=== PATIENT | female | born 1945 | race Caucasian/White ===

== ENCOUNTER 2018-05-12 18:57 | Emergency (ER) | payer MEDICARE, OTHER ==
--- NOTE | 2018-05-12 20:18 | ED ---
Lower Extremity - HPI Summary HPI Summary: Patient with history of right hip placed replacement in 2006 complains of feeling something moving in her right hip while leaning over to tie her shoe in a seated position today. No pain at rest. Pain only with movement of right leg. Denies trauma, fall, . Medical history is HTN. No anti-coag. Any other symptoms or injury. - History of Current Complaint Chief Complaint: EDHipPelvisInjury Stated Complaint: RT HIP PAIN Time Seen by Provider: 05/12/18 19:30 Hx Obtained From: Patient Mechanism Of Injury: Other Severity Currently: None Pain Intensity: 0 Pain Scale Used: 0-10 Numeric Associated Signs And Symptoms: Positive: Negative Aggravating Factor(s): Movement Alleviating Factor(s): Rest - Allergies/Home Medications Allergies/Adverse Reactions: Allergies Allergy/AdvReac Type Severity Reaction Status Date / Time MS Benzoin [Benzoin] Allergy Severe Hives Verified 05/12/18 19:21 Opioids - Morphine Analogues Allergy Unknown Verified 05/12/18 19:21 Reaction Details PMH/Surg Hx/FS Hx/Imm Hx Endocrine/Hematology History: Denies: Hx Diabetes, Hx Thyroid Disease Cardiovascular History: Reports: Hx Hypertension - on meds Respiratory History: Denies: Hx Asthma, Hx Chronic Obstructive Pulmonary Disease (COPD) GI History: Denies: Hx Ulcer Musculoskeletal History: Denies: Hx Osteoporosis - Cancer History Hx Chemotherapy: No Hx Radiation Therapy: No - Surgical History Surgery Procedure, Year, and Place: RIGHT HIP REPLACEMENT, knee with a screw Infectious Disease History: No Infectious Disease History: Denies: Hx Hepatitis, Hx Human Immunodeficiency Virus (HIV), Traveled Outside the [place] in Last 30 Days - Social History Alcohol Use: Occasionally Substance Use Type: Reports: None Smoking Status (MU): Never Smoked Tobacco Review of Systems Constitutional: Negative Eyes: Negative ENT: Negative Cardiovascular: Negative Respiratory: Negative Gastrointestinal: Negative Genitourinary: Negative Positive: Arthralgia Skin: Negative Neurological: Negative Psychological: Normal All Other Systems Reviewed And Are Negative: Yes Physical Exam - Summary Physical Exam Summary: Tenderness to palpation over right hip. No rotation of right leg noted. Patient will not start straighten out leg, so cannot determine difference in leg length. PMS intact distally on right lower extremity. Triage Information Reviewed: Yes Vital Signs On Initial Exam: Initial Vitals Temp Pulse Resp BP Pulse Ox 97.7 F 82 16 144/72 97 05/12/18 19:19 05/12/18 19:19 05/12/18 19:19 05/12/18 19:19 05/12/18 19:19 Vital Signs Reviewed: Yes Appearance: Positive: Well-Appearing Skin: Positive: Warm Head/Face: Positive: Normal Head/Face Inspection Eyes: Positive: Normal Neck: Positive: Supple Respiratory/Lung Sounds: Positive: Clear to Auscultation Cardiovascular: Positive: Normal Abdomen Description: Positive: Nontender Musculoskeletal: Positive: Normal Neurological: Positive: Normal Psychiatric: Positive: Normal AVPU Assessment: Alert - [place] Coma Scale Best Eye Response: 4 - Spontaneous Best Motor Response: 6 - Obeys Commands Best Verbal Response: 5 - Oriented Coma Scale Total: 15 Diagnostics - Vital Signs Vital Signs Temp Pulse Resp BP Pulse Ox 05/12/18 19:19 97.7 F 82 16 144/72 97 - Laboratory Lab Statement: Any lab studies that have been ordered have been reviewed, and results considered in the medical decision making process. Lower Extremity Course/Dx - Course Course Of Treatment: Patient with history of right hip placed replacement in 2006 complains of feeling something moving in her right hip while leaning over to tie her shoe in a seated position today. No pain at rest. Pain only with movement of right leg. Denies trauma, fall, . Medical history is HTN. No anti -coag. Any other symptoms or injury. Physical exam: Tenderness to palpation over right hip. No rotation of right leg noted. Patient will not start straighten out leg, so cannot determine difference in leg length. PMS intact distally on right lower extremity. Positive superior dislocation of right hip on x-ray. Sedation performed by Dr. Miller. Relocation performed by Dr. Montoya. Confirmed by x-ray. Knee immobilizer placed. Crutches supplied. Follow-up with orthopedics. - Diagnoses Provider Diagnoses: Hip dislocation, right Discharge - Sign-Out/Discharge Documenting (check all that apply): Patient Departure - Discharge Plan Condition: Stable Disposition: HOME Patient Education Materials: Hip Dislocation (ED) Referrals: Yumi Amaya [Primary Care Provider] - Zbigniew Bates MD [Medical Doctor] - Additional Instructions: Follow-up with orthopedics Dr. Bates. Return to the ED for any new or worsening symptoms - Billing Disposition and Condition Condition: STABLE Disposition: Home
[2018-05-12] MEDS ORDERED: Propofol* 500 MG/50 ML BTL ONE (20:59)
--- NOTE | 2018-05-12 21:11 | ED ---
Course/Dx - Course Course Of Treatment: Patient with history of right hip placed replacement in 2006 complains of feeling something moving in her right hip while leaning over to tie her shoe in a seated position today. No pain at rest. Pain only with movement of right leg. Denies trauma, fall, . Medical history is HTN. No anti -coag. Any other symptoms or injury. Physical exam: Tenderness to palpation over right hip. No rotation of right leg noted. Patient will not start straighten out leg, so cannot determine difference in leg length. PMS intact distally on right lower extremity. Positive superior dislocation of right hip on x-ray. Sedation performed by Dr. Miller. Relocation performed by Dr. Montoya. Knee immobilizer placed. Crutches supplied. Follow-up with orthopedics. - Diagnoses Provider Diagnoses: Hip dislocation, right Discharge - Sign-Out/Discharge Documenting (check all that apply): Patient Departure - Discharge Plan Condition: Stable Disposition: HOME Patient Education Materials: Hip Dislocation (ED) Referrals: Yumi Amaya [Primary Care Provider] - Zbigniew Bates MD [Medical Doctor] - Additional Instructions: Follow-up with orthopedics Dr. Bates. Return to the ED for any new or worsening symptoms - Billing Disposition and Condition Condition: STABLE Disposition: Home - Attestation Statements Document Initiated by Scribe: No Procedure Note: Sedation - Sedation/Analgesia Procedure: Reduction of dislocated right hip prosthesis Informed Consent Obtained: Yes Equipment in Room: Bag and Mask, Pulse Oximeter, Suction, Outpatient Surgery Rn Plan for Sedation: Moderate Sedation ASA Classification: II Previous Problem with Sedation: No - Pre-Procedure Exam Airway Exam:: Neck Extenstion: Full, Teeth: Normal - Post Procedure Eval Alert and Oriented: yes Normal Respiratroy Status: yes Controlled Nausea/Vomiting/Pain: yes Able to Ambulate/Baseline Mobility: yes Accompanied by Responsible Adult: yes Discharge Instructions Given: yes Complications: none Reversal Agent Used: no Face to Face Atendance Began at: 21:00 Face to Face Attandanced Ended at: 21:08 Total Sedation/Analgesia Time: Other - 5 minutes
--- NOTE | 2018-05-12 21:45 | ED ---
Progress - Progress Note Progress Note: This pt is a 73 y/o female with right hip dislocation who was seen by AGUILA Acosta. Dr. Norris performed moderate sedation. Dr. Montoya performed the reduction of dislocated right hip. Course/Dx - Course Course Of Treatment: Patient with history of right hip placed replacement in 2006 complains of feeling something moving in her right hip while leaning over to tie her shoe in a seated position today. No pain at rest. Pain only with movement of right leg. Denies trauma, fall, . Medical history is HTN. No anti -coag. Any other symptoms or injury. Physical exam: Tenderness to palpation over right hip. No rotation of right leg noted. Patient will not start straighten out leg, so cannot determine difference in leg length. PMS intact distally on right lower extremity. Positive superior dislocation of right hip on x-ray. Sedation performed by Dr. Miller. Relocation performed by Dr. Montoya. Confirmed by x-ray. Knee immobilizer placed. Crutches supplied. Follow-up with orthopedics. - Diagnoses Provider Diagnoses: Hip dislocation, right Discharge - Sign-Out/Discharge Documenting (check all that apply): Patient Departure - Discharge home - Discharge Plan Condition: Stable Disposition: HOME Patient Education Materials: Hip Dislocation (ED) Referrals: Yumi Amaya [Primary Care Provider] - Zbigniew Bates MD [Medical Doctor] - Additional Instructions: Follow-up with orthopedics Dr. Bates. Return to the ED for any new or worsening symptoms - Attestation Statements Document Initiated by Scribe: Yes Documenting Scribe: Macy Campbell Provider For Whom Scribe is Documenting (Include Credential): Yasmeen Montoya MD Scribe Attestation: Macy Porter, scribed for Yasmeen Montoya MD on 05/12/18 at 2148. Procedure Note / Orthopedic - Dislocation Treatment Bone(s) / Specify: Procedure note of right dislocated hip Anesthesia: Procedural Sedation - given by Dr. Norris Procedure / Technique: Pt was given moderate sedation by Dr. Norris. Using the ain Fortunato technique right hip was relocated. Post reduction XR shows good alignment and no fracture. Pt was placed on a knee immobilizer. Pre and post procedure neurovascular exam is intact. Post Dislocation Treatment: N/V Intact, Allignment Assessed, Relocation Acceptable
[2018-05-12 22:11] VITALS: BP 164/79
[2018-05-12] MEDS ORDERED: Propofol* 10 MG/ML 20 ML BTL IV PUSH ONE (22:44)
--- NOTE | 2018-05-13 07:40 | RAD ---
HISTORY: hip pain COMPARISONS: April 07, 2015 VIEWS: 3 , Frontal view of the pelvis with frontal and crosstable lateral views of the right hip FINDINGS: BONE DENSITY: There is diffuse osteopenia. BONES: The patient is status post right hip arthroplasty. There is no hardware failure or osteolysis. JOINTS: The patient is status post right hip arthroplasty. There is mild osteoarthritis of the left hip. ALIGNMENT: There has been superior dislocation of the femoral component of the right hip prosthesis with respect to the acetabular component. SOFT TISSUES: Unremarkable. OTHER FINDINGS: Degenerative changes are noted of the spine.. IMPRESSION: STATUS POST RIGHT HIP ARTHROPLASTY WITH SUPERIOR DISLOCATION OF THE FEMORAL COMPONENT WITH RESPECT TO THE ACETABULAR COMPONENT R1
--- NOTE | 2018-05-13 07:45 | RAD ---
HISTORY: post reduction COMPARISONS: May 12, 2018 at 7:36 PM VIEWS: 1 , single frontal view of the right hip FINDINGS: BONE DENSITY: There is diffuse osteopenia. BONES: The patient is status post right hip arthroplasty. On this single frontal projection, there is no hardware failure or osteolysis. JOINTS: The patient is status post right hip arthroplasty. ALIGNMENT: There has been interval reduction of the right hip prosthesis dislocation SOFT TISSUES: Unremarkable. OTHER FINDINGS: None. IMPRESSION: INTERVAL REDUCTION OF THE RIGHT HIP PROSTHESIS DISLOCATION. ON THIS SINGLE FRONTAL PROJECTION, THE ALIGNMENT IS ANATOMIC AND THERE IS NO APPRECIABLE HARDWARE FAILURE. R0
== END 2018-05-12 22:22 | disposition home or self-care (01) ==
LOC: ED 18:57
DX: T84.020A Dislocation of internal right hip prosthesis, initial encounter (principal); Y83.1 Surgical operation with implant of artificial internal device as the cause of abnormal reaction of the patient, or of later complication, without mention of misadventure at the time of the procedure; Y93.89 Activity, other specified; Y92.9 Unspecified place or not applicable; I10 Essential (primary) hypertension
CPT/HCPCS: 27250; 99283; J2704

== ENCOUNTER 2018-06-12 18:54 | Emergency (ER) | payer MEDICARE, OTHER ==
--- NOTE | 2018-06-12 19:32 | ED ---
Lower Extremity - HPI Summary HPI Summary: Patient is a 73 y/o F w/ c/o right hip pain after going from sitting to standing position. PMHx of superior dislocation at the right hip a month ago, confirmed by x-ray at [facility]. At the time, sedation performed by Dr. Norris, relocation performed by Dr. Gutierrez. Relocation was confirmed by x-ray. She was given knee immobilizer and crutches, instructed to follow up with orthopedics. Patient notes she has been following up with ortho and states that she has been going to physical therapy. She states last time she ate today was at 1300. On triage, pain is rated 1/10. Nothing is reported to aggravate/alleviate Sx. Home medications and allergies are reviewed. - History of Current Complaint Chief Complaint: EDHipPelvisInjury Stated Complaint: RIGHT HIP INJURY Time Seen by Provider: 06/12/18 19:21 Hx Obtained From: Patient Mechanism Of Injury: Other - going from sitting to standing position Onset of Pain: Prior to Arrival Onset/Duration: Still Present Severity Currently: Mild - 1/10 Pain Intensity: 1 Pain Scale Used: 0-10 Numeric - 1/10 Timing: Constant Location: Is Discrete @ - right hip Associated Signs And Symptoms: Positive: Negative Aggravating Factor(s): Nothing Alleviating Factor(s): Nothing - Allergies/Home Medications Allergies/Adverse Reactions: Allergies Allergy/AdvReac Type Severity Reaction Status Date / Time MS Benzoin [Benzoin] Allergy Severe Hives Verified 05/12/18 19:21 Opioids - Morphine Analogues Allergy Unknown Verified 05/12/18 19:21 Reaction Details PMH/Surg Hx/FS Hx/Imm Hx Endocrine/Hematology History: Denies: Hx Diabetes, Hx Thyroid Disease Cardiovascular History: Reports: Hx Hypertension - on meds Respiratory History: Denies: Hx Asthma, Hx Chronic Obstructive Pulmonary Disease (COPD) GI History: Denies: Hx Ulcer Musculoskeletal History: Denies: Hx Osteoporosis Sensory History: Denies: Hx Legally Blind, Hx Deafness Opthamlomology History: Denies: Hx Legally Blind EENT History: Denies: Hx Deafness - Cancer History Hx Chemotherapy: No Hx Radiation Therapy: No - Surgical History Surgery Procedure, Year, and Place: RIGHT HIP REPLACEMENT, knee with a screw Infectious Disease History: No Infectious Disease History: Denies: Hx Hepatitis, Hx Human Immunodeficiency Virus (HIV), Traveled Outside the [place] in Last 30 Days - Family History Known Family History: Negative: Blood Disorder - Social History Alcohol Use: Occasionally Substance Use Type: Reports: None Smoking Status (MU): Never Smoked Tobacco Review of Systems Negative: Fever - on vitals, temp is 98.3 F Positive: Other - right hip pain All Other Systems Reviewed And Are Negative: Yes Physical Exam - Summary Physical Exam Summary: VITAL SIGNS: Reviewed. GENERAL: Patient is a well-developed and nourished female who is lying comfortable in the stretcher. Patient is not in any acute respiratory distress. HEAD AND FACE: No signs of trauma. No ecchymosis, hematomas or skull depressions. No sinus tenderness. EYES: PERRLA, EOMI x 2, No injected conjunctiva, no nystagmus. EARS: Hearing grossly intact. Ear canals and tympanic membranes are within normal limits. MOUTH: Oropharynx within normal limits. NECK: Supple, trachea is midline, no adenopathy, no JVD, no carotid bruit, no c- spine tenderness, neck with full ROM. CHEST: Symmetric, no tenderness at palpation LUNGS: Clear to auscultation bilaterally. No wheezing or crackles. CVS: Regular rate and rhythm, S1 and S2 present, no murmurs or gallops appreciated. ABDOMEN: Soft, non-tender. No signs of distention. No rebound no guarding, and no masses palpated. Bowel sounds are normal. EXTREMITIES: No edema, no cyanosis or clubbing. RLE is internally rotated and shortened. NEURO: Alert and oriented x 3. No acute neurological deficits. Speech is normal and follows commands. SKIN: Dry and warm Triage Information Reviewed: Yes Vital Signs On Initial Exam: Initial Vitals Temp Pulse Resp BP Pulse Ox 98.3 F 76 15 150/65 98 06/12/18 19:00 06/12/18 19:00 06/12/18 19:00 06/12/18 19:00 06/12/18 19:00 Vital Signs Reviewed: Yes Procedures - Joint Reduction Right Hip, first attempt Joint Reduction Site: hip (R) Conscious Sedation: Yes - moderate sedation with fentanyl and versed Reduction Attempts: 1 Post Joint Reduction Film: joint not reduced Right Hip, second attempt Joint Reduction Site: hip (R) Conscious Sedation: Yes - propofol Reduction Attempts: 1 - using captain kris technique Post Joint Reduction Film: joint reduced Diagnostics - Vital Signs Vital Signs Temp Pulse Resp BP Pulse Ox 06/12/18 19:00 98.3 F 76 15 150/65 98 - Laboratory Lab Statement: Any lab studies that have been ordered have been reviewed, and results considered in the medical decision making process. - Radiology right hip x-ray Radiology Interpretation Completed By: ED Physician Summary of Radiographic Findings: Right hip x-ray shows superior dislocation of hip. right hip x-ray post relocation attempt Radiology Interpretation Completed By: ED Physician Summary of Radiographic Findings: Right hip x-ray shows superior dislocation of hip still. right hip x-ray, post second relocation attempt Radiology Interpretation Completed By: ED Physician Summary of Radiographic Findings: Good realignment of right hip, no fracture seen. Re-Evaluation - Re-Evaluation First Eval Re-Evaluation Time: 20:09 Comment: attempted to relocate right hip Second Eval Re-Evaluation Time: 22:10 Comment: Second hip relocation attempt with propofol. Third Eval Re-Evaluation Time: 22:45 Change: Improved Comment: X-ray showed good realignment of hip, right knee immobilizer was applied. Lower Extremity Course/Dx - Course Course Of Treatment: Patient is a 73 y/o F w/ c/o right hip pain after going from sitting to standing position. PMHx of superior dislocation at the right hip a month ago, confirmed by x-ray at [facility]. At the time, sedation performed by Dr. Norris, relocation performed by Dr. Gutierrez. Relocation was confirmed by x- ray. She was given knee immobilizer and crutches, instructed to follow up with orthopedics. Patient notes she has been following up with ortho and states that she has been going to physical therapy. She states last time she ate today was at 1300. On physical exam, it is noted that RLE is internally rotated and shortened. Right hip x-ray shows superior dislocation of hip. Dr. Luke was called at 1943 to consult for propofol drip. Relocation will be attempted with midazolam and fentanyl, if unsuccessful Dr. Luke will come to ED for propofol. During ED course, patient received Midazolam 2 mg, Midazolam 3 mg, Midazolam 5 mg, Fentanyl 50 mcg, and Fentanyl 100 mcg. Relocation was attempted but successful. Patient's hip was not relaxed enough. Dr. Luke was called, Dr. Luke to come to ED for propofol. Upon arrival of Dr. Luke to ED, patient was started on propofol by her. Second relocation of hip was attempted using captain kris technique. X-ray of hip showed good realignment of hip, no fractures observed. Right knee immobilizer was applied. Patient was discharged to home and instructed to follow up with orthopedic doctor. - Diagnoses Provider Diagnoses: Hip dislocation, right - Physician Notifications Discussed Care Of Patient With: Candelaria Luke Time Discussed With Above Provider: 19:43 Instructed by Provider To: Other - Dr. Luke was called at 1942 to consult for propofol drip. Relocation will be attempted with midazolam and fentanyl, if unsuccessful Dr. Luke will come to ED for propofol. 2050 - after unsuccessful relocation attempt, Dr. Luke was called. Dr. Luke to come to ED for propofol. Discharge - Sign-Out/Discharge Documenting (check all that apply): Patient Departure - discharge - Discharge Plan Condition: Stable Disposition: HOME Patient Education Materials: Moderate Sedation (ED), Hip Dislocation (ED) Referrals: Zbigniew Bates MD [Medical Doctor] - 2 Days Additional Instructions: RETURN TO THE EMERGENCY DEPARTMENT FOR CHANGING OR WORSENING SYMPTOMS. FOLLOW UP WITH ORTHOPEDIC DOCTOR IN 1-2 DAYS. - Attestation Statements Document Initiated by Scribe: Yes Documenting Scribe: GORDY GRIFFITH Provider For Whom Scribe is Documenting (Include Credential): OLGA ERNANDEZ MD Scribe Attestation: GORDY Porter , scribed for OLGA ERNANDEZ MD on 06/12/18 at 2313.
[2018-06-12] MEDS ORDERED: Midazolam* 1 MG/ML 5 ML VIAL (5 MG) ONE ×3 (20:05→21:59)
[2018-06-12] MEDS ORDERED: fentaNYL* 50 MCG/ML 2 ML VIAL (100 MCG VIAL) ONE ×2 (20:06→21:59)
[2018-06-12] MEDS ORDERED: fentaNYL* 50 MCG/ML 2 ML VIAL (100 MCG VIAL) IV SLOW PU ONE (20:13)
[2018-06-12] MEDS ORDERED: Midazolam* 1 MG/ML 5 ML VIAL (5 MG) SLOW PUSH ONE ×2 (20:13)
[2018-06-12] MEDS ORDERED: fentaNYL* 50 MCG/ML 5 ML VIAL (250 MCG VIAL) ONE (20:16)
[2018-06-12] MEDS: fentaNYL* 50 MCG/ML 2 ML VIAL (100 MCG VIAL) IV SLOW PU ONE ×2 (20:27→22:36)
[2018-06-12] MEDS: Midazolam* 1 MG/ML 5 ML VIAL (5 MG) SLOW PUSH ONE ×2 (20:40→22:36)
[2018-06-12] MEDS ORDERED: Propofol* 500 MG/50 ML BTL ONE (21:59)
[2018-06-12 23:46] VITALS: BP 108/85
== END 2018-06-12 23:45 | disposition home or self-care (01) ==
LOC: ED 18:54
DX: S73.004A Unspecified dislocation of right hip, initial encounter (principal); I10 Essential (primary) hypertension; X58.XXXA Exposure to other specified factors, initial encounter; Y92.9 Unspecified place or not applicable
CPT/HCPCS: 96374; 96375; 96376; 99284; J2250; J2704; J3010

== ENCOUNTER 2020-03-07 11:25 | Observation (INO) ==
[~2020-03-07 11:25] MED LIST: Buffered Lidocaine 1% SYRIN 1 ml INTRADERM ONE; Dexamethasone IV 4 MG/ML VIAL 1 ml VIAL IV SLOW PU ONE; Famotidine IV 10 MG/ML 2 ml VIAL (20 mg) IV ONE
[2020-03-07] MEDS ORDERED: Midazolam 5 mg/5 ml VIAL 1 mg/ml 5 ml VIAL (5 mg) ONE (11:33)
[2020-03-07] MEDS ORDERED: Phenylephrine IV 10 MG/ML 1 ml VIAL ONE (11:36)
[2020-03-07] MEDS ORDERED: Dexamethasone IV 4 MG/ML VIAL 1 ml VIAL ONE (12:11)
[2020-03-07] MEDS ORDERED: Famotidine IV 10 MG/ML 2 ml VIAL (20 mg) ONE (12:12)
[2020-03-07] MEDS ORDERED: Propofol 1,000 MG/100 ML BTL ONE (13:01)
[2020-03-07] MEDS ORDERED: Bupivacaine 0.5% SDV PF 30ML VIAL ONE (13:01)
[2020-03-07] MEDS: Lactated Ringers 1000 ml BAG 1,000 ML IV SCH ×3 (13:10→20:28)
[2020-03-07] MEDS ORDERED: ceFAZolin 2 GM PREMIX 2 GM/50 ML BAG ONE (13:32)
[2020-03-07] MEDS ORDERED: Bacitracin INJECTION 50,000 UNITS ONE (15:03)
[2020-03-07] MEDS ORDERED: Magnesium Hydroxide LIQ 30 ML UDC PO PRN (16:29)
[2020-03-07] MEDS ORDERED: diPHENhydraMINE 25 mg TAB PO PRN (16:29)
[2020-03-07] MEDS ORDERED: diPHENhydraMINE IV 50 MG/ML 1 ml VIAL (BENADRYL) IV PRN (16:29)
[2020-03-07] MEDS ORDERED: Lactulose 30 ml UDC PO PRN (16:29)
[2020-03-07] MEDS ORDERED: oxyCODONE/Acetamin 5/325 mg TAB PO PRN (16:29)
[2020-03-07] MEDS ORDERED: Ondansetron 4 mg VIAL 2 MG/ML 2 ml VIAL IV PRN ×2 (16:29→16:53)
[2020-03-07] MEDS ORDERED: Ondansetron ODT 4 mg TAB 4 MG TAB PO PRN (16:29)
[2020-03-07] MEDS ORDERED: Naloxone 0.4 mg VIAL 0.4 mg/ml 1 ml VIAL IV PRN (16:53)
[2020-03-07] MEDS ORDERED: fentaNYL 100 mcg/2 ml 50 MCG/ML VIAL ONE (16:53)
[2020-03-07] MEDS: fentaNYL 100 mcg/2 ml 50 MCG/ML VIAL IV PRN ×4 (17:00→17:30)
[2020-03-07] MEDS ORDERED: Sodium Chloride(INHALANT)0.9% 5 ML NEB.SOLN INH PRN (17:22)
[2020-03-07] MEDS: Benzocaine/Menthol LOZ MT PRN (17:50)
[2020-03-07] MEDS ORDERED: HYDROmorphone 1 MG/1 ML SYRINGE ONE (18:21)
[2020-03-07] MEDS: HYDROmorphone 1 MG/1 ML SYRINGE IV PRN ×3 (18:25→18:50)
[2020-03-07] MEDS: oxyCODONE/Acetamin 5/325 mg TAB PO PRN (21:37)
[2020-03-07] MEDS: Magnesium Hydroxide LIQ 30 ML UDC PO SCH (21:37)
[2020-03-07] MEDS: ceFAZolin 1 GM ADVAN 1 GM in NS 0.9% 50 ML 50 ML IVPB SCH (21:40)
[2020-03-08] MEDS: Benzocaine/Menthol LOZ MT PRN (00:22)
[2020-03-08] MEDS: ceFAZolin 1 GM ADVAN 1 GM in NS 0.9% 50 ML 50 ML IVPB SCH ×2 (05:22→14:30)
[2020-03-08 05:37] LABS: Hematocrit 30 % (35-47); Hemoglobin 10.6 g/dL (12.0-16.0); Mean Platelet Volume 9.9 fL (7.4-10.4); Platelet Count 130 10^3/uL (150-450)
[2020-03-08 05:47] LABS: BUN/Creatinine Ratio 28.6 (8-20); Calcium 9.5 mg/dL (8.6-10.3); EGFR African American 88.2 (>60); EGFR Non-African American 72.9 (>60); Potassium 4.1 mmol/L (3.5-5.0)
[2020-03-08] MEDS: Lactated Ringers 1000 ml BAG 1,000 ML IV SCH (06:54)
[2020-03-08] MEDS: Magnesium Hydroxide LIQ 30 ML UDC PO SCH (08:27)
[2020-03-08] MEDS: oxyCODONE/Acetamin 5/325 mg TAB PO PRN ×2 (08:27→14:29)
[2020-03-08] MEDS ORDERED: Vitamin THERAPEUTIC TAB PO SCH (09:00)
[2020-03-08 11:51] VITALS: BP 101/44
== END 2020-03-08 16:20 | disposition home or self-care (01) ==
LOC: AA 11:25 → INTOOBSV 11:25 → SSU 16:29
PROVIDERS: ADMIT Orthopaedic Surgery Adult Reconstructive Orthopaedic Surgery; ATTEND Orthopaedic Surgery Adult Reconstructive Orthopaedic Surgery

== ENCOUNTER 2020-10-23 14:56 | Inpatient (IN) ==
[2020-10-23] MEDS ORDERED: oxyCODONE/Acetamin 5/325 mg TAB PO ONE ×2 (16:34→19:28)
[2020-10-23] MEDS ORDERED: NS 0.9% 1000 ml BAG 1,000 ML IV SCH (21:15)
[2020-10-23 21:50] LABS: ABS Lymphocytes 1.1 10^3/ul (1.0-4.8); ABS Monocytes 0.5 10^3/ul (0-0.8); ABS Neutrophils 10.8 10^3/ul (1.5-7.7); Eosinophil % 0.1 %; Hematocrit 36 % (35-47); Hemoglobin 11.7 g/dL (12.0-16.0); Lymphocyte % 8.6 %; Mean Corpuscular HGB Conc 33 g/dL (31-36); Mean Corpuscular Hemoglobin 29 pg (27-31); Mean Corpuscular Volume 87 fL (80-97); Mean Platelet Volume 9.5 fL (7.4-10.4); Platelet Count 174 10^3/uL (150-450); Red Blood Count 4.08 10^6 /uL (3.70-4.87); Red Cell Distribution Width 15 % (10-15); White Blood Count 12.4 10^3/uL (3.5-10.8)
[2020-10-23 22:06] LABS: Albumin 3.9 g/dL (3.2-5.2); Albumin/Globulin Ratio 1.7 (1-3); BUN/Creatinine Ratio 27.1 (8-20); Calcium 10.7 mg/dL (8.6-10.3); EGFR African American 78.7 (>60); Globulin 2.3 g/dL (2-4); Potassium 4.3 mmol/L (3.5-5.0); Total Bilirubin 0.5 mg/dL (0.2-1.0); Total Protein 6.2 g/dL (6.4-8.9)
[2020-10-23 23:31] LABS: Urine Appearance Cloudy; Urine Bilirubin Negative (Negative); Urine Blood Negative (Negative); Urine Color Yellow; Urine Glucose Negative (Negative); Urine Ketones 1+ (Negative); Urine Nitrite Positive (Negative); Urine Protein Negative (Negative); Urine Specific Gravity 1.017 (1.002-1.030); Urine Urobilinogen Negative (Negative)
[2020-10-23] MEDS: oxyCODONE/Acetamin 5/325 mg TAB PO PRN (23:33)
[2020-10-23 23:34] LABS: Urine Bacteria 1+ (Absent); Urine Red Blood Cell Absent (Absent); Urine Squamous Epithelial Cell Present (Absent); Urine White Blood Cell 2+(11-20/hpf) (Absent)
[2020-10-24] MEDS: oxyCODONE/Acetamin 5/325 mg TAB PO PRN ×3 (03:37→12:33)
[2020-10-24 07:03] LABS: ABS Eosinophils 0.1 10^3/ul (0-0.6); ABS Lymphocytes 1.8 10^3/ul (1.0-4.8); ABS Monocytes 0.6 10^3/ul (0-0.8); ABS Neutrophils 5.8 10^3/ul (1.5-7.7); Eosinophil % 1.6 %; Hematocrit 33 % (35-47); Hemoglobin 11.2 g/dL (12.0-16.0); Mean Corpuscular HGB Conc 34 g/dL (31-36); Mean Corpuscular Hemoglobin 29 pg (27-31); Mean Corpuscular Volume 88 fL (80-97); Mean Platelet Volume 10.1 fL (7.4-10.4); Platelet Count 173 10^3/uL (150-450); Red Cell Distribution Width 15 % (10-15); White Blood Count 8.4 10^3/uL (3.5-10.8)
[2020-10-24 07:15] LABS: BUN/Creatinine Ratio 27.1 (8-20); Calcium 10.3 mg/dL (8.6-10.3); EGFR African American 78.7 (>60); Potassium 3.9 mmol/L (3.5-5.0)
[2020-10-24] MEDS: Cholecalciferol (VIT D3) 400 units TAB PO SCH (08:46)
[2020-10-24] MEDS: Nystatin TOP POWDER 15 GM BTL TOPICAL SCH ×2 (08:46→21:00)
[2020-10-24] MEDS ORDERED: Magnesium Hydroxide LIQ 30 ML UDC PO PRN (10:46)
[2020-10-24] MEDS ORDERED: Senna TAB 8.6 mg TAB PO PRN (10:46)
[2020-10-24] MEDS ORDERED: ceFAZolin 2 GM PREMIX 2 GM/50 ML BAG ONE (16:16)
[2020-10-24] MEDS ORDERED: Ondansetron 4 mg VIAL 2 MG/ML 2 ml VIAL IV PRN (16:42)
[2020-10-24] MEDS ORDERED: Naloxone 0.4 mg VIAL 0.4 mg/ml 1 ml VIAL IV PRN (16:42)
[2020-10-24] MEDS ORDERED: ROPIVACAINE 5 MG/ML 30 ML BTL (0.5%) ONE (16:53)
[2020-10-24] MEDS ORDERED: Lidocaine 2% PF 5 ML VIAL ONE (17:00)
[2020-10-24] MEDS ORDERED: Ondansetron 4 mg VIAL 2 MG/ML 2 ml VIAL ONE (17:05)
[2020-10-24] MEDS ORDERED: Dexamethasone IV 4 MG/ML VIAL 1 ml VIAL ONE (17:05)
[2020-10-24] MEDS ORDERED: fentaNYL 100 mcg/2 ml 50 MCG/ML VIAL ONE ×2 (17:06→20:55)
[2020-10-24] MEDS ORDERED: Ketamine HCL 50 mg/ml 10 ml VIAL (500 MG) ONE (17:06)
[2020-10-24] MEDS ORDERED: Midazolam 2 mg/2 ml VIAL 1 mg/ml 2 ml VIAL (2 mg) ONE (17:06)
[2020-10-24] MEDS ORDERED: fentaNYL 250 mcg/5 ml 50 MCG/ML 5 ml VIAL (250 MCG) ONE (18:09)
[2020-10-24] MEDS ORDERED: Acetaminophen IV 1 GM/100ML 100 ML ONE (19:53)
[2020-10-24] MEDS: fentaNYL 100 mcg/2 ml 50 MCG/ML VIAL IV PRN ×2 (20:56→21:21)
[2020-10-24 22:03] LABS: Vitamin D Total 25(OH) 36.4 ng/mL (20-50)
[2020-10-25] MEDS: ceFAZolin 1 GM X 3 DOSES POST-OP Q8H (AddVan) IVPB SCH ×3 (01:57→17:15)
[2020-10-25] MEDS: oxyCODONE/Acetamin 5/325 mg TAB PO PRN ×2 (01:57→06:18)
[2020-10-25 06:53] LABS: Hematocrit 34 % (35-47); Hemoglobin 11.1 g/dL (12.0-16.0); Mean Corpuscular HGB Conc 33 g/dL (31-36); Mean Corpuscular Hemoglobin 29 pg (27-31); Mean Corpuscular Volume 88 fL (80-97); Platelet Count 173 10^3/uL (150-450); Red Blood Count 3.81 10^6 /uL (3.70-4.87); Red Cell Distribution Width 15 % (10-15); White Blood Count 9.9 10^3/uL (3.5-10.8)
[2020-10-25 07:12] LABS: BUN/Creatinine Ratio 23.3 (8-20); Calcium 10.3 mg/dL (8.6-10.3); EGFR African American 73.7 (>60); EGFR Non-African American 60.9 (>60); Potassium 4.2 mmol/L (3.5-5.0)
[2020-10-25] MEDS: Cholecalciferol (VIT D3) 400 units TAB PO SCH (09:37)
[2020-10-25] MEDS: Nystatin TOP POWDER 15 GM BTL TOPICAL SCH ×2 (09:38→19:53)
[2020-10-25] MEDS: Enoxaparin 40 MG/0.4 ML SYR SUBCUT SCH (11:55)
[2020-10-26 04:27] LABS: Hematocrit 28 % (35-47); Hemoglobin 9.5 g/dL (12.0-16.0); Mean Platelet Volume 9.5 fL (7.4-10.4); Platelet Count 140 10^3/uL (150-450)
[2020-10-26 04:43] LABS: BUN/Creatinine Ratio 26.8 (8-20); EGFR Non-African American 67.8 (>60)
[2020-10-26] MEDS ORDERED: Polyethylene Glycol 3350 17 GM PACKET PO PRN (09:16)
[2020-10-26] MEDS: Senna TAB 8.6 mg TAB PO SCH ×2 (09:54→20:11)
[2020-10-26] MEDS: Cholecalciferol (VIT D3) 400 units TAB PO SCH (09:55)
[2020-10-26] MEDS: Magnesium Hydroxide LIQ 30 ML UDC PO SCH ×2 (09:55→20:12)
[2020-10-26] MEDS: Enoxaparin 40 MG/0.4 ML SYR SUBCUT SCH (09:56)
[2020-10-26] MEDS: Nystatin TOP POWDER 15 GM BTL TOPICAL SCH ×2 (10:02→20:06)
[2020-10-27 06:13] LABS: Hematocrit 29 % (35-47); Hemoglobin 9.5 g/dL (12.0-16.0); Mean Platelet Volume 9.6 fL (7.4-10.4); Platelet Count 123 10^3/uL (150-450)
[2020-10-27 06:34] LABS: Calcium 10.4 mg/dL (8.6-10.3); EGFR African American 90.9 (>60); EGFR Non-African American 75.1 (>60); Potassium 3.9 mmol/L (3.5-5.0)
[2020-10-27] MEDS: Cholecalciferol (VIT D3) 400 units TAB PO SCH (09:25)
[2020-10-27] MEDS: Magnesium Hydroxide LIQ 30 ML UDC PO SCH ×2 (09:28→21:34)
[2020-10-27] MEDS: Enoxaparin 40 MG/0.4 ML SYR SUBCUT SCH (09:29)
[2020-10-27] MEDS: Nystatin TOP POWDER 15 GM BTL TOPICAL SCH ×2 (09:36→21:37)
[2020-10-27] MEDS: Senna TAB 8.6 mg TAB PO SCH (21:35)
[2020-10-28 05:56] LABS: Hematocrit 28 % (35-47); Hemoglobin 9.4 g/dL (12.0-16.0); Mean Platelet Volume 9.3 fL (7.4-10.4); Platelet Count 143 10^3/uL (150-450)
[2020-10-28 06:10] LABS: BUN/Creatinine Ratio 27.3 (8-20); Calcium 10.4 mg/dL (8.6-10.3); EGFR African American 88.2 (>60); EGFR Non-African American 72.9 (>60); Potassium 3.9 mmol/L (3.5-5.0)
[2020-10-28] MEDS: Cholecalciferol (VIT D3) 400 units TAB PO SCH (08:38)
[2020-10-28] MEDS: Enoxaparin 40 MG/0.4 ML SYR SUBCUT SCH (08:39)
[2020-10-28] MEDS: Magnesium Hydroxide LIQ 30 ML UDC PO SCH ×2 (08:44→20:02)
[2020-10-28] MEDS: Nystatin TOP POWDER 15 GM BTL TOPICAL SCH ×2 (13:38→23:29)
[2020-10-28] MEDS: Senna TAB 8.6 mg TAB PO SCH (20:03)
[2020-10-29 06:29] LABS: Hematocrit 29 % (35-47); Hemoglobin 9.9 g/dL (12.0-16.0); Mean Platelet Volume 9.7 fL (7.4-10.4); Platelet Count 163 10^3/uL (150-450)
[2020-10-29 06:50] LABS: BUN/Creatinine Ratio 27.6 (8-20); Calcium 10.8 mg/dL (8.6-10.3); EGFR African American 89.5 (>60); Potassium 4.2 mmol/L (3.5-5.0)
[2020-10-29] MEDS: Cholecalciferol (VIT D3) 400 units TAB PO SCH (08:43)
[2020-10-29] MEDS: Enoxaparin 40 MG/0.4 ML SYR SUBCUT SCH (08:44)
[2020-10-29] MEDS: Magnesium Hydroxide LIQ 30 ML UDC PO SCH ×2 (08:47→21:41)
[2020-10-29] MEDS: Nystatin TOP POWDER 15 GM BTL TOPICAL SCH ×2 (12:05→21:41)
[2020-10-29] MEDS: Senna TAB 8.6 mg TAB PO SCH (21:41)
[2020-10-30 05:56] LABS: Hematocrit 30 % (35-47); Hemoglobin 10.1 g/dL (12.0-16.0); Mean Platelet Volume 9.3 fL (7.4-10.4); Platelet Count 174 10^3/uL (150-450)
[2020-10-30 06:10] LABS: BUN/Creatinine Ratio 29.9 (8-20); Calcium 10.8 mg/dL (8.6-10.3); EGFR African American 88.2 (>60); EGFR Non-African American 72.9 (>60); Potassium 4.1 mmol/L (3.5-5.0)
[2020-10-30] MEDS: Cholecalciferol (VIT D3) 400 units TAB PO SCH (09:51)
[2020-10-30] MEDS: Enoxaparin 40 MG/0.4 ML SYR SUBCUT SCH (09:52)
[2020-10-30] MEDS: Magnesium Hydroxide LIQ 30 ML UDC PO SCH (10:22)
[2020-10-30] MEDS: Nystatin TOP POWDER 15 GM BTL TOPICAL SCH (10:28)
[2020-10-30 11:36] VITALS: BP 121/57
== END 2020-10-30 17:30 | DRG 482 ==
LOC: ED 14:56 → SSU 20:43
PROVIDERS: ADMIT Internal Medicine; ATTEND Student in an Organized Health Care Education/Training Program